=== PATIENT | female | born 1950 | race American Indian/Alaskan Native ===

== ENCOUNTER → 2018-09-27 | Outpatient (CLI) | payer MEDICARE, OTHER ==
--- NOTE | 2018-09-28 08:49 | MM ---
Reason for exam: additional evaluation requested from prior study. Last mammogram was performed 3 years and 9 months ago. History: Patient is postmenopausal and has history of breast cancer at age 58. Family history of breast cancer in maternal aunt. Saline implant in the right breast, September 2013. Reduction of the left breast, September 2013. Mastectomy of the right breast, 2009. Chemotherapy, 2009. Taking other hormone for 10 years. Physical Findings: Nurse did not find any significant physical abnormalities on exam. MG 3D Diag Mammo W/Cad LT CC and MLO view(s) were taken of the left breast. Prior study comparison: December 19, 2014, left breast MG diagnostic mammo LT w CAD. The breast tissue is heterogeneously dense. This may lower the sensitivity of mammography. Finding #1: There is a 15 mm circumscribed lobulated mass in the axilla position of the left breast. Finding #2: There are typically benign round calcifications in the left breast. New finding since December 19, 2014. These results were verbally communicated with the patient on 09/28/18. ASSESSMENT: Incomplete: need additional imaging evaluation, BI-RAD 0 RECOMMENDATION: Ultrasound of the left breast.
== END | disposition home or self-care (01) ==
LOC: RADMAMWWP 15:29
PROVIDERS: ATTEND Family Medicine
DX: Z08 Encounter for follow-up examination after completed treatment for malignant neoplasm (principal); Z85.3 Personal history of malignant neoplasm of breast
CPT/HCPCS: 77065; G0279; 77061

== ENCOUNTER → 2018-10-06 | Outpatient (CLI) | payer MEDICARE, OTHER ==
--- NOTE | 2018-10-06 15:12 | USB ---
Reason for exam: additional evaluation requested from abnormal screening. History: Patient is postmenopausal and has history of breast cancer at age 58. Family history of breast cancer in maternal aunt. Saline implant in the right breast, September 2013. Reduction of the left breast, September 2013. Mastectomy of the right breast, 2009. Chemotherapy, 2009. Taking other hormone for 10 years. US Breast Workup Limited LT Left limited breast ultrasound including focal area of concern, retroareolar and axilla demonstrates a 2.8 x 1.6 x 0.9cm oval lesion at the axilla. These results were verbally communicated with the patient and result sheet given to the patient on 10/06/18. ASSESSMENT: Benign, BI-RAD 2 RECOMMENDATION: Routine screening mammogram of both breasts in 1 year.
--- NOTE | 2018-10-11 09:02 | USB ---
Reason for exam: additional evaluation requested from abnormal screening. History: Patient is postmenopausal and has history of breast cancer at age 58. Family history of breast cancer in maternal aunt. Saline implant in the right breast, September 2013. Reduction of the left breast, September 2013. Mastectomy of the right breast, 2009. Chemotherapy, 2009. Taking other hormone for 10 years. US Breast Limited LT Left limited breast ultrasound including focal area of concern, retroareolar and axilla demonstrates a 2.8 x 1.6 x 0.9cm oval lesion at the axilla. These results were verbally communicated with the patient and result sheet given to the patient on 10/06/18. ASSESSMENT: Benign, BI-RAD 2 RECOMMENDATION: Routine screening mammogram of both breasts in 1 year.
== END | disposition home or self-care (01) ==
LOC: RADUSWWP 14:21
PROVIDERS: ATTEND Family Medicine
DX: R92.8 Other abnormal and inconclusive findings on diagnostic imaging of breast (principal)

== ENCOUNTER → 2018-10-19 | Outpatient (CLI) | payer MEDICARE, OTHER ==
[2018-10-19 11:20] VITALS: BP 154/70; PULSE 74; RESP 16; TEMP 98.2; BMI 23.1
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
== END ==
LOC: WWCWWP 10:58
PROVIDERS: ATTEND Surgery
DX: Z53.9 Procedure and treatment not carried out, unspecified reason (principal)

== ENCOUNTER → 2018-10-31 | Outpatient (CLI) | payer MEDICARE, OTHER ==
--- NOTE | 2018-11-02 08:22 | BMR ---
EXAMINATION TYPE: MR breast BILAT wo/w con DATE OF EXAM: 10/31/2018 COMPARISON: NONE HISTORY: Rule out Ruptured rt breast implant per order. Family history of breast cancer in aunt [place] at age 60. History of right breast mastectomy 2010 for cancer diagnosed 2008 with 2 reconstructi ons in 2012 and 2017 per patient. Saline implants placed 2018. CONTRAST: Multiplanar, multisequence images of the breasts were acquired utilizing 6.5 mL intravenous Gadavist gadolinium contrast. TECHNIQUE: A series of fat and water weighted images in the long and short axis views of both breasts are obtained in conjunction with dynamic contrast MRI with subtraction technique. Three-dimensional and additional postprocessing imaging is created on independent workstation and reviewed during offi cial interpretation of this study. REFERENCE: Left breast Three-D mammogram September 27, 2018 BI-RADS 0 and older mammograms. Left breast limi gladys ultrasound October 06, 2018 BI-RADS 2. FINDINGS: Right breast has elongated transverse dimension and diminished AP dimension versus opposite left breast. There is silicone type central implant with surrounding fluid likely reflecting saline between capsules. There is slight lobulation or infolding along the periphery. No suspicious infoldin g or linguini sign to suggest intracapsular rupture. No extracapsular silicone is identified to sugge st external rupture which correlates with presence of trapped saline between the capsules. Subpectora l location of implant noted. Left breast shows heterogeneously dense tissue with moderate to marked background glanular enhancemen t. Corresponding to mammogram and ultrasound there are prominent but benign-appearing left axillary l ymph nodes. There are few tiny thin-walled cysts scattered throughout central glandular tissue. No le spicious enhancing masses or pathologic enhancement is identified. No suspicious intramammary adenopa thy is seen. Chest wall is intact. IMPRESSION: No MRI evidence for invasive malignancy in the left breast. No MRI evidence for right remington ast implant rupture. BI-RADS 2 benign findings right breast. BI-RADS 2 benign findings left breast. Recommendation: Patient due for annual left breast mammogram September 2019.
== END | disposition home or self-care (01) ==
LOC: RADMRIMAIN 14:11
PROVIDERS: ATTEND Surgery
DX: R68.89 Other general symptoms and signs (principal); Z98.82 Breast implant status
CPT/HCPCS: C8937; C8908; A9585; 77049

== ENCOUNTER 2021-10-29 14:36 | Inpatient (IN) | payer MEDICARE, OTHER ==
[2021-10-29 16:04] LABS: Basophils # (A) 0.1 k/uL (0-0.2); Basophils % (A) 0 %; Eosinophils # (A) 0.3 k/uL (0-0.7); Eosinophils % (A) 2 %; HCT 39.5 % (34.0-46.0); HGB 12.7 gm/dL (11.4-16.0); Lymphocytes # (A) 2.5 k/uL (1.0-4.8); Lymphocytes % (A) 19 %; MCH 31.1 pg (25.0-35.0); MCHC 32.3 g/dL (31.0-37.0); MCV 96.4 fL (80.0-100.0); Mean Platelet Volume 7.9; Monocytes # (A) 0.6 k/uL (0-1.0); Monocytes % (A) 4 %; Neutrophils # (A) 9.5 k/uL (1.3-7.7); Neutrophils % (A) 72 %; Platelet Count 414 k/uL (150-450); RBC 4.09 m/uL (3.80-5.40); RDW 14.2 % (11.5-15.5); WBC 13.2 k/uL (3.8-10.6)
[2021-10-29 16:17] LABS: ALT 13 U/L (4-34); AST 26 U/L (14-36); African American GFR (CKD) >90 (>60 ml/min/1.73 sqM); Albumin 4.3 g/dL (3.5-5.0); Alkaline Phosphatase 87 U/L (38-126); Anion Gap 7 mmol/L; Blood Urea Nitrogen 8 mg/dL (7-17); Calcium 9.6 mg/dL (8.4-10.2); Carbon Dioxide 27 mmol/L (22-30); Chloride 105 mmol/L (98-107); Glucose 76 mg/dL (74-99); Non-African American GFR(CKD) >90 (>60 ml/min/1.73 sqM); Potassium 4.1 mmol/L (3.5-5.1); Sodium 139 mmol/L (137-145); Total Bilirubin 0.4 mg/dL (0.2-1.3); Total Protein 7.3 g/dL (6.3-8.2)
--- NOTE | 2021-10-29 16:52 | XR ---
EXAMINATION TYPE: XR chest 2V DATE OF EXAM: 10/29/2021 COMPARISON: X-ray dated 04/05/2012 HISTORY: Hemoptysis TECHNIQUE: Frontal and lateral views of the chest are obtained. FINDINGS: Almost complete opacification of the left hemithorax with loss of volume and significant cardiomedias tinal shift to the left side. Possible associated left pleural effusion. This could be due to complet e collapse of the left lung or interval left pneumonectomy, please correlate clinically. Further CT a ssessment can be considered if clinically required. Compensatory hyperinflation of the right lung. No right-sided pleural effusion or definite pneumothor ax. Cardiac size cannot be properly assessed. Dense aortic atherosclerotic calcifications. Diffuse os teopenia. Degenerative changes of the thoracic spine. IMPRESSION: As above.
[2021-10-29] MEDS ORDERED: RX INFO: IV CONTRAST WAS GIVEN 1 EACH MISC MISCELLANE PRN (16:59)
[2021-10-29 17:41] LABS: INR 0.9 (<1.2)
[2021-10-29 17:44] LABS: Amorphous Sediment,Urine Rare /hpf; Appearance,Urine Turbid (Clear); Bacteria,Urine Occasional /hpf; Bilirubin,Urine Negative (Negative); Blood,Urine Negative (Negative); Calcium Oxalate Crystals,Urine Moderate /hpf; Color,Urine Yellow; Glucose,Urine (UA) Negative (Negative); Ketones,Urine Negative (Negative); Leukocyte Esterase,Urine Large (Negative); Mucus,Urine Many /hpf; Nitrite,Urine Negative (Negative); PH, Urine 5.5 (5.0-8.0); Protein,Urine 1+ (Negative); RBC,Urine 7 /hpf (0-5); Specific Gravity,Urine 1.028 (1.001-1.035); Squamous Epithelial Cell,Urine 53 /hpf (0-4); Urobilinogen,Urine <2.0 mg/dL (<2.0); WBC,Urine 15 /hpf (0-5)
--- NOTE | 2021-10-29 18:14 | ED ---
ENT HPI - General Chief complaint: GI Bleed Stated complaint: Coughing Up blood Time Seen by Provider: 10/29/21 16:23 Source: patient, family, RN notes reviewed Mode of arrival: ambulatory Limitations: no limitations - History of Present Illness Initial comments: This is a 70-year-old female who presents to the emergency department for hemoptysis. Patient states that this has been present for approximately one week and occurs about twice each day. When it does occur, she states that she coughs up a large amount of bright red blood. She has very minor shortness of breath and denies any chest pain. She did have an episode of black tarry stools over a week ago that has since resolved. Denies any abdominal pain, nausea, or vomiting. She does have a history of breast cancer that was last treated 4-[address] Jensen manage this. She has never been diagnosed with any pulmonary issues, however she is a daily smoker. She does report associated upper back pain with the hemoptysis. She has never had symptoms like this in the past. Denies any fevers, chills, sore throat, chest pain, palpitations, abdominal pain, nausea, vomiting, diarrhea, back pain, or headaches. MD complaint: other (hemoptysis) Onset/Timin -: week(s) - Related Data Home Medications Medication Instructions Recorded Confirmed Letrozole [Femara] 2.5 mg PO DAILY 03/31/16 10/29/21 Multivitamins, Thera [Multivitamin] 1 tab PO DAILY 03/31/16 10/29/21 [place]-3 Fatty Acids/Fish Oil [Fish 2 cap PO DAILY 03/31/16 10/29/21 Oil 1,000 mg Softgel] Ascorbic Acid [Vitamin C] 2,000 mg PO DAILY 10/29/21 10/29/21 Aspirin EC [Ecotrin Low Dose] 81 mg PO DAILY 10/29/21 10/29/21 Cholecalciferol [Vitamin D3 (25 50 mcg PO DAILY 10/29/21 10/29/21 Mcg = 1000 Iu)] PARoxetine [Paxil] 20 mg PO HS PRN 10/29/21 10/29/21 Vitamin B Complex 1 cap PO DAILY 10/29/21 10/29/21 amLODIPine [Norvasc] 10 mg PO DAILY 10/29/21 10/29/21 Allergies Allergy/AdvReac Type Severity Reaction Status Date / Time nicotine [From Nicotrol] Allergy Unknown Verified 10/29/21 17:18 prednisone Allergy Unknown Verified 10/29/21 17:18 Sulfa (Sulfonamide Allergy Rash/Hives Verified 10/29/21 17:18 Antibiotics) meperidine [From Demerol] AdvReac Nausea & Verified 10/29/21 17:18 Vomiting morphine AdvReac Nausea & Verified 10/29/21 17:18 Vomiting Review of Systems ROS Statement: Those systems with pertinent positive or pertinent negative responses have been documented in the HPI. ROS Other: All systems not noted in ROS Statement are negative. Past Medical History Past Medical History: Cancer, Hypertension, Osteoarthritis (OA) Additional Past Medical History / Comment(s): HX BREAST CANCER History of Any Multi-Drug Resistant Organisms: None Reported Past Surgical History: Breast Surgery, Joint Replacement Additional Past Surgical History / Comment(s): 04/05/16 total R knee arthroplasty. Other surgical hx: RT BREAST MASTECTOMY/RECONSTRUCTION LT EYE SOCKET AND LT EAR Past Anesthesia/Blood Transfusion Reactions: No Reported Reaction Past Psychological History: No Psychological Hx Reported Smoking Status: Current every day smoker Past Alcohol Use History: Occasional Past Drug Use History: Marijuana - Past Family History Mother Family Medical History: Cancer Additional Family Medical History / Comment(s): Mother of lung cancer at the age of 83 yrs. She was a heavy smoker Father Family Medical History: No Reported History General Exam Limitations: no limitations General appearance: alert, in no apparent distress Head exam: Present: atraumatic, normocephalic, normal inspection Neck exam: Present: normal inspection. Absent: tenderness, meningismus, lymphadenopathy Respiratory exam: Present: other (Decreased breath sounds on the left). Absent: respiratory distress, wheezes, rales, rhonchi, stridor, chest wall tenderness Cardiovascular Exam: Present: regular rate, normal rhythm, normal heart sounds. Absent: systolic murmur, diastolic murmur, rubs, gallop, clicks Neurological exam: Present: alert, oriented X3, CN II-XII intact Psychiatric exam: Present: normal affect, normal mood Skin exam: Present: warm, dry, intact, normal color. Absent: rash Course Vital Signs 10/29/21 10/29/21 15:16 18:03 Temperature 98.6 F Pulse Rate 88 78 Respiratory 20 18 Rate Blood Pressure 148/68 130/56 O2 Sat by Pulse 94 L 95 Oximetry Medical Decision Making - Medical Decision Making This is a 70-year-old female who presents to the emergency department for hem optysis. Lab work reveals an elevated white blood cell count and elevated d- dimer. Chest x-ray noted a left opaque hemithorax and significant cardiomediastinal shift to the left. Computed tomography scan of the chest was obtained, revealing near-complete airlessness of the left lung and a small left effusion. No definitive pneumothorax identified. I spoke with Dr. Young, pulmonology. He will review the patient's computed tomography scan. At this time, we will plan to keep her NPO at midnight for possible bronchoscopy in the morning. This case was discussed in detail with the attending ED physician. Presentation, findings, and treatment plan discussed in detail as well. - Lab Data Result diagrams: 10/29/21 15:53 10/29/21 15:53 Lab Results 10/29/21 10/29/21 10/29/21 Range/Units 15:52 15:53 15:53 WBC 13.2 H (3.8-10.6) k/uL RBC 4.09 (3.80-5.40) m/uL Hgb 12.7 (11.4-16.0) gm/dL Hct 39.5 (34.0-46.0) % MCV 96.4 (80.0-100.0) fL MCH 31.1 (25.0-35.0) pg MCHC 32.3 (31.0-37.0) g/dL RDW 14.2 (11.5-15.5) % Plt Count 414 (150-450) k/uL MPV 7.9 Neutrophils % 72 % Lymphocytes % 19 % Monocytes % 4 % Eosinophils % 2 % Basophils % 0 % Neutrophils # 9.5 H (1.3-7.7) k/uL Lymphocytes # 2.5 (1.0-4.8) k/uL Monocytes # 0.6 (0-1.0) k/uL Eosinophils # 0.3 (0-0.7) k/uL Basophils # 0.1 (0-0.2) k/uL PT (9.0-12.0) sec INR (<1.2) D-Dimer (<0.60) mg/L FEU Sodium 139 (137-145) mmol/L Potassium 4.1 (3.5-5.1) mmol/L Chloride 105 (98-107) mmol/L Carbon Dioxide 27 (22-30) mmol/L Anion Gap 7 mmol/L BUN 8 (7-17) mg/dL Creatinine 0.53 (0.52-1.04) mg/dL Est GFR (CKD-EPI)AfAm >90 (>60 ml/min/1.73 sqM) Est GFR (CKD-EPI)NonAf >90 (>60 ml/min/1.73 sqM) Glucose 76 (74-99) mg/dL Calcium 9.6 (8.4-10.2) mg/dL Total Bilirubin 0.4 (0.2-1.3) mg/dL AST 26 (14-36) U/L ALT 13 (4-34) U/L Alkaline Phosphatase 87 (38-126) U/L Total Protein 7.3 (6.3-8.2) g/dL Albumin 4.3 (3.5-5.0) g/dL Urine Color Urine Appearance (Clear) Urine pH (5.0-8.0) Ur Specific [place] (1.001-1.035) Urine Protein (Negative) Urine Glucose (UA) (Negative) Urine Ketones (Negative) Urine Blood (Negative) Urine Nitrite (Negative) Urine Bilirubin (Negative) Urine Urobilinogen (<2.0) mg/dL Ur Leukocyte Esterase (Negative) Urine RBC (0-5) /hpf Urine WBC (0-5) /hpf Ur Squamous Epith Cells (0-4) /hpf Calcium Oxalate Crystal (None) /hpf Amorphous Sediment (None) /hpf Urine Bacteria (None) /hpf Urine Mucus (None) /hpf Coronavirus (PCR) (Not Detectd) Influenza Type A RNA (Not Detectd) Influenza Type B (PCR) (Not Detectd) Blood Type A Positive Blood Type Confirm Blood Type Recheck No Previous Record Bld Type Recheck Status CABO Indicated Antibody Screen NEGATIVE Spec Expiration Date 11/01/2021235110/29/21 10/29/21 10/29/21 Range/Units 16:30 16:30 16:30 WBC (3.8-10.6) k/uL RBC (3.80-5.40) m/uL Hgb (11.4-16.0) gm/dL Hct (34.0-46.0) % MCV (80.0-100.0) fL MCH (25.0-35.0) pg MCHC (31.0-37.0) g/dL RDW (11.5-15.5) % Plt Count (150-450) k/uL MPV Neutrophils % % Lymphocytes % % Monocytes % % Eosinophils % % Basophils % % Neutrophils # (1.3-7.7) k/uL Lymphocytes # (1.0-4.8) k/uL Monocytes # (0-1.0) k/uL Eosinophils # (0-0.7) k/uL Basophils # (0-0.2) k/uL PT 10.0 (9.0-12.0) sec INR 0.9 (<1.2) D-Dimer 1.71 H (<0.60) mg/L FEU Sodium (137-145) mmol/L Potassium (3.5-5.1) mmol/L Chloride (98-107) mmol/L Carbon Dioxide (22-30) mmol/L Anion Gap mmol/L BUN (7-17) mg/dL Creatinine (0.52-1.04) mg/dL Est GFR (CKD-EPI)AfAm (>60 ml/min/1.73 sqM) Est GFR (CKD-EPI)NonAf (>60 ml/min/1.73 sqM) Glucose (74-99) mg/dL Calcium (8.4-10.2) mg/dL Total Bilirubin (0.2-1.3) mg/dL AST (14-36) U/L ALT (4-34) U/L Alkaline Phosphatase (38-126) U/L Total Protein (6.3-8.2) g/dL Albumin (3.5-5.0) g/dL Urine Color Yellow Urine Appearance Turbid H (Clear) Urine pH 5.5 (5.0-8.0) Ur Specific [place] 1.028 (1.001-1.035) Urine Protein 1+ H (Negative) Urine Glucose (UA) Negative (Negative) Urine Ketones Negative (Negative) Urine Blood Negative (Negative) Urine Nitrite Negative (Negative) Urine Bilirubin Negative (Negative) Urine Urobilinogen <2.0 (<2.0) mg/dL Ur Leukocyte Esterase Large H (Negative) Urine RBC 7 H (0-5) /hpf Urine WBC 15 H (0-5) /hpf Ur Squamous Epith Cells 53 H (0-4) /hpf Calcium Oxalate Crystal Moderate H (None) /hpf Amorphous Sediment Rare H (None) /hpf Urine Bacteria Occasional H (None) /hpf Urine Mucus Many H (None) /hpf Coronavirus (PCR) (Not Detectd) Influenza Type A RNA (Not Detectd) Influenza Type B (PCR) (Not Detectd) Blood Type Blood Type Confirm A Positive Blood Type Recheck Bld Type Recheck Status Antibody Screen Spec Expiration Date 10/29/21 10/29/21 Range/Units 16:30 16:30 WBC (3.8-10.6) k/uL RBC (3.80-5.40) m/uL Hgb (11.4-16.0) gm/dL Hct (34.0-46.0) % MCV (80.0-100.0) fL MCH (25.0-35.0) pg MCHC (31.0-37.0) g/dL RDW (11.5-15.5) % Plt Count (150-450) k/uL MPV Neutrophils % % Lymphocytes % % Monocytes % % Eosinophils % % Basophils % % Neutrophils # (1.3-7.7) k/uL Lymphocytes # (1.0-4.8) k/uL Monocytes # (0-1.0) k/uL Eosinophils # (0-0.7) k/uL Basophils # (0-0.2) k/uL PT (9.0-12.0) sec INR (<1.2) D-Dimer (<0.60) mg/L FEU Sodium (137-145) mmol/L Potassium (3.5-5.1) mmol/L Chloride (98-107) mmol/L Carbon Dioxide (22-30) mmol/L Anion Gap mmol/L BUN (7-17) mg/dL Creatinine (0.52-1.04) mg/dL Est GFR (CKD-EPI)AfAm (>60 ml/min/1.73 sqM) Est GFR (CKD-EPI)NonAf (>60 ml/min/1.73 sqM) Glucose (74-99) mg/dL Calcium (8.4-10.2) mg/dL Total Bilirubin (0.2-1.3) mg/dL AST (14-36) U/L ALT (4-34) U/L Alkaline Phosphatase (38-126) U/L Total Protein (6.3-8.2) g/dL Albumin (3.5-5.0) g/dL Urine Color Urine Appearance (Clear) Urine pH (5.0-8.0) Ur Specific [place] (1.001-1.035) Urine Protein (Negative) Urine Glucose (UA) (Negative) Urine Ketones (Negative) Urine Blood (Negative) Urine Nitrite (Negative) Urine Bilirubin (Negative) Urine Urobilinogen (<2.0) mg/dL Ur Leukocyte Esterase (Negative) Urine RBC (0-5) /hpf Urine WBC (0-5) /hpf Ur Squamous Epith Cells (0-4) /hpf Calcium Oxalate Crystal (None) /hpf Amorphous Sediment (None) /hpf Urine Bacteria (None) /hpf Urine Mucus (None) /hpf Coronavirus (PCR) Not Detected (Not Detectd) Influenza Type A RNA Not Detected (Not Detectd) Influenza Type B (PCR) Not Detected (Not Detectd) Blood Type Blood Type Confirm Blood Type Recheck Bld Type Recheck Status Antibody Screen Spec Expiration Date - EKG Data EKG Comments: Normal sinus rhythm. Ventricular rate 77 bpm, CT interval 165 ms, QRS duration 95 ms, QTC 415 milliseconds. - Radiology Data Radiology results: report reviewed, image reviewed Disposition Clinical Impression: Hemoptysis, Hx of breast cancer, Opacity of lung on imaging study, Mediastinal shift Disposition: ADMITTED IP TO THIS HOSP Referrals: Denver Singh MD [Primary Care Provider] - 1-2 days
--- NOTE | 2021-10-29 18:40 | CT ---
EXAMINATION TYPE: CT chest w con DATE OF EXAM: 10/29/2021 COMPARISON: Chest x-ray 10/29/2021 HISTORY: SOB CT DLP: 311.7 mGycm. Automated Exposure Control for Dose Reduction was Utilized. TECHNIQUE: CT scan of the thorax is performed following with IV Contrast, patient injected with 100 mL of Isovue 300. FINDINGS: SOFT TISSUES: Right breast implant noted. AIRWAYS: Unremarkable. LUNGS AND PLEURAL SPACES: On the left there is near complete airlessness of the left lung parenchyma with exception of a small area of left lower lobe which is partially inflated. Small left pleural eff usion noted. On the right, the lung is hyperinflated and is clear and well-expanded. The right pleural spaces nega tive. MEDIASTINUM: The there is no cardiomegaly. No pericardial effusion. Atherosclerotic changes are noted within the aorta. Pulmonary arterial anatomy unremarkable as seen. No adenopathy. OTHER: No additional significant abnormality is seen. No adenopathy. IMPRESSION: Near complete airlessness of the left lung parenchyma with small left effusion.
[2021-10-29] MEDS ORDERED: NALOXONE 0.4 MG/ML 1 ML VIAL IV PRN (20:46)
[2021-10-29] MEDS ORDERED: ONDANSETRON 4 MG/2 ML VIAL IVP PRN (20:46)
[2021-10-29] MEDS ORDERED: ACETAMINOPHEN TAB 325 MG TAB PO PRN (20:46)
[2021-10-29] MEDS: SODIUM CHLORIDE 0.9% 1,000 ML IV SCH (23:43)
[2021-10-30] MEDS ORDERED: NON FORMULARY DRUG (Vitamin B Complex [Vitamin B Complex] 1 EACH Capsule) PO SCH (09:00)
[2021-10-30] MEDS ORDERED: NON FORMULARY DRUG (Omega-3 Fatty Acids/Fish Oil [Fish Oil 1,000 Mg Softgel] 1 EACH Capsul PO SCH (09:00)
[2021-10-30] MEDS: amLODIPine 10 MG TAB PO SCH (11:22)
--- NOTE | 2021-10-30 11:47 | P.CNPUL ---
History of Present Illness Consult date: 10/30/21 Reason for consult: dyspnea, abnormal CXR/CT Chief complaint: Hemoptysis History of present illness: 70-year-old female patient, came into the emergency room because of episodes of hemoptysis that started approximately week ago and she was having 2 episodes a day. She was coughing out large amounts of bright red blood and she was also having some increased shortness of breath. For that reason she came into the hospital. The chest x-ray was done that showed complete opacification of the left lung and following that the patient was given a computed tomography scan of the chest that showed atelectasis of the left lung and a small left-sided pleural effusion. There is also subcarinal lymphadenopathy. Right lung was essentially clear. Complete atelectasis of the left lung or near complete atelectasis. The right lung was clear. There is subcarinal lymphadenopathy. There is some mass in the distal left mainstem bronchus and based on that the patient will need further investigation. The patient is a chronic smoker. The patient has previous history of breast cancer and she has undergone previous right mastectomy and she is currently on Femara Review of Systems Eyes: denies as per HPI, denies blurred vision, denies bulging eye, denies decreased vision, denies diplopia, denies discharge, denies dry eye, denies irritation, denies itching, denies pain, denies photophobia, denies loss of peripheral vision, denies loss of vision, denies tunnel vision/blind spots Ears: deny: decreased hearing, ear discharge, earache, tinnitus Ears, nose, mouth and throat: Reports as per HPI Breasts: absent: as per HPI, change in shape, gynecomastia, masses, nipple discharge, pain, skin changes, swelling Cardiovascular: Reports decreased exercise tolerance, Reports dyspnea on exertion Respiratory: Reports cough, Reports dyspnea, Reports excessive sputum Genitourinary: Reports as per HPI Menstruation: Reports as per HPI Musculoskeletal: Reports as per HPI Musculoskeletal: absent: ankle pain, ankle stiffness, ankle swelling Integumentary: Reports as per HPI Psychiatric: Reports as per HPI Endocrine: Reports as per HPI Hematologic/Lymphatic: Reports as per HPI Allergic/Immunologic: Reports as per HPI Past Medical History Past Medical History: Cancer, Hypertension, Osteoarthritis (OA) Additional Past Medical History / Comment(s): HX BREAST CANCER History of Any Multi-Drug Resistant Organisms: None Reported Past Surgical History: Breast Surgery, Joint Replacement Additional Past Surgical History / Comment(s): 04/05/16 total R knee arthroplasty. Other surgical hx: RT BREAST MASTECTOMY/RECONSTRUCTION LT EYE SOCKET AND LT EAR Past Anesthesia/Blood Transfusion Reactions: No Reported Reaction Past Psychological History: No Psychological Hx Reported Additional Psychological History / Comment(s): Pt resides with her spouse. She has a cane she uses prn. She drives. Smoking Status: Current every day smoker Past Alcohol Use History: Occasional Additional Past Alcohol Use History / Comment(s): HAS SMOKED 1/2 PPD SINCE AGE 17 Past Drug Use History: Marijuana - Past Family History Mother Family Medical History: Cancer Additional Family Medical History / Comment(s): Mother of lung cancer at the age of 83 yrs. She was a heavy smoker Father Family Medical History: No Reported History Brother(s) Additional Family Medical History / Comment(s): lung cancer Medications and Allergies Home Medications Medication Instructions Recorded Confirmed Type Letrozole [Femara] 2.5 mg PO DAILY 03/31/16 10/29/21 History Multivitamins, Thera [Multivitamin] 1 tab PO DAILY 03/31/16 10/29/21 History [place]-3 Fatty Acids/Fish Oil [Fish 2 cap PO DAILY 03/31/16 10/29/21 History Oil 1,000 mg Softgel] Ascorbic Acid [Vitamin C] 2,000 mg PO DAILY 10/29/21 10/29/21 History Aspirin EC [Ecotrin Low Dose] 81 mg PO DAILY 10/29/21 10/29/21 History Cholecalciferol [Vitamin D3 (25 50 mcg PO DAILY 10/29/21 10/29/21 History Mcg = 1000 Iu)] PARoxetine [Paxil] 20 mg PO HS PRN 10/29/21 10/29/21 History Vitamin B Complex 1 cap PO DAILY 10/29/21 10/29/21 History amLODIPine [Norvasc] 10 mg PO DAILY 10/29/21 10/29/21 History Allergies Allergy/AdvReac Type Severity Reaction Status Date / Time nicotine [From Nicotrol] Allergy Unknown Verified 10/29/21 17:18 prednisone Allergy Unknown Verified 10/29/21 17:18 Sulfa (Sulfonamide Allergy Rash/Hives Verified 06/09/22 17:18 Antibiotics) meperidine [From Demerol] AdvReac Nausea & Verified 10/29/21 17:18 Vomiting morphine AdvReac Nausea & Verified 10/29/21 17:18 Vomiting Physical Exam Vitals: Vital Signs Temp Pulse Pulse Resp BP BP Pulse Ox 10/30/21 11:08 78 16 139/80 92 L 10/30/21 08:00 98.1 F 66 16 163/69 97 10/30/21 06: 98.4 F 73 18 126/71 95 10/29/21 18:03 78 18 130/56 95 10/29/21 15:16 98.6 F 88 20 148/68 94 L Intake and Output 10/29/21 10/30/21 10/30/21 22:59 06:59 14:59 Other: # Voids 1 Weight 64.864 kg 66.5 kg Gen. appearance this patient is coming comfortable, breathing is nonlabored and the patient is currently on room air oxygen. Head exam was generally normal. There was no scleral icterus or corneal arcus. Mucous membranes were moist. Neck was supple and without jugular venous distension, thyromegaly, or carotid bruits. Carotids were easily palpable bilaterally. There was no adenopathy. Lungs sounds are diminished in the left compared to the right. Breath sounds in the right arm within normal limits. Cardiac exam revealed the PMI to be normally situated and sized. The rhythm was regular and no extrasystoles were noted during several minutes of auscultation. The first and second heart sounds were normal and physiologic splitting of the second heart sound was noted. There were no murmurs, rubs, clicks, or gallops. Abdominal exam revealed normal bowel sounds. The abdomen was soft, non-tender, and without masses, organomegaly, or appreciable enlargement of the abdominal aorta. Examination of the extremities revealed easily palpable radial, femoral and pedal pulses. There was no cyanosis, clubbing or edema. Examination of the skin revealed no evidence of significant rashes, suspicious a ppearing nevi or other concerning lesions. Results - Laboratory Findings CBC and BMP: 10/29/21 15:53 10/29/21 15:53 PT/INR, D-dimer PT 10.0 sec (9.0-12.0) 10/29/21 16:30 INR 0.9 (<1.2) 10/29/21 16:30 D-Dimer 1.71 mg/L FEU (<0.60) H 10/29/21 16:30 Abnormal lab findings: Abnormal Labs 10/29/21 10/29/21 10/29/21 15:53 16:30 16:30 WBC 13.2 H Neutrophils # 9.5 H D-Dimer 1.71 H Urine Appearance Turbid H Urine Protein 1+ H Ur Leukocyte Esterase Large H Urine RBC 7 H Urine WBC 15 H Ur Squamous Epith Cells 53 H Calcium Oxalate Crystal Moderate H Amorphous Sediment Rare H Urine Bacteria Occasional H Urine Mucus Many H - Diagnostic Findings Chest x-ray: image reviewed CT scan - chest: image reviewed Assessment and Plan Plan: Left lung atelectasis, rule out endobronchial tumor obstructing the distal left mainstem bronchus, the patient will need further investigation Hemoptysis under investigation Mild shortness of breath and the patient is currently on room air oxygen History of stage III breast cancer with a previous right mastectomy followed by chemotherapy and subsequent breast implant reconstruction and the patient is currently on Femara Smoker Depression/anxiety Hypertension Osteoarthritis PLAN We'll proceed with a flexible bronchoscopy, airway inspection, endobronchial biopsies if there is any significant abnormalities in the distal left mainstem bronchus, possible EBUS of the subcarinal lymph nodes. We'll continue to follow.. The plan was discussed with the patient. The procedure was explained. She was agreeable. Consent was obtained. The patient is currently nothing by mouth.
[2021-10-30] MEDS ORDERED: SUCCINYLCHOLINE CHLORIDE 100 MG/5 ML SYR IV ONE (15:35)
[2021-10-30] MEDS ORDERED: GLYCOPYRROLATE 0.2 MG/ML 2 ML VIAL ONE (15:35)
[2021-10-30] MEDS ORDERED: NEOSTIGMINE 1 MG/ML 10 ML VIAL ONE (15:35)
[2021-10-30] MEDS ORDERED: ROCURONIUM 10 MG/ML (5 ML VIAL) IV ONE (15:35)
[2021-10-30] MEDS ORDERED: PROPOFOL 10 MG/ML 20 ML VIAL IV ONE (15:35)
[2021-10-30] MEDS ORDERED: MIDAZOLAM 2 MG/2 ML VIAL ONE (15:35)
[2021-10-30] MEDS ORDERED: POTASSIUM CITRATE 5 MEQ TABLET.ER PO ONE (15:35)
[2021-10-30] MEDS ORDERED: LIDOCAINE 2% INJ 20 MG/ML (2 ML VIAL) ONE (15:35)
--- NOTE | 2021-10-30 15:54 | P.HPIM ---
History of Present Illness H&P Date: 10/30/21 This is a 70-year-old female with past medical history significant for breast cancer with mastectomy maintained on femara, hypertension, daily smoker. She presents with concerns for back pain with hemoptysis ongoing for the past week states is a large amount of red blood. Patient also reports episodes of black tarry stool over a week ago that has since resolved. She smokes 1/2 pack per day, and also admits to smoking marijuana joint daily. Chest x-ray on admission showing complete opacification of the left hemithorax with possible associated left pleural effusion possible complete collapse of left lung. There is left lung atelectasis. Follow-up chest CT showing near complete airlessness of the left lung parenchyma with small left pleural effusion. Patient is admitted with consultation to pulmonary and is scheduled to undergo bronchoscopy today, there is concern for possible mass and obstruction at the left mainstream bronchus. EKG showing sinus rhythm heart rate 77, QT interval 415, no ST or T-wave changes. Labs on admission showed white count 13.2, d-dimer 1.71, Kashi panels unrem arkable, urine is turbid with large leukocyte esterase, moderate oxalate crystals. COVID, Infleunza A/ B are negative. She is 97% room air, afebrile, heart rate 66, blood pressure 163 with 69. REVIEW OF SYSTEMS: CONSTITUTIONAL: No fever, no malaise, no fatigue. HEENT: No recent visual problems or hearing problems. Denied any sore throat. CARDIOVASCULAR: No chest pain, orthopnea, PND, no palpitations, no syncope. PULMONARY: Reports shortness of breath, cough and hemoptysis GASTROINTESTINAL: No diarrhea, no nausea, no vomiting, no abdominal pain. NEUROLOGICAL: No headaches, no weakness, no numbness. HEMATOLOGICAL: Denies any bleeding or petechiae. GENITOURINARY: Denies any burning micturition, frequency, or urgency. MUSCULOSKELETAL/RHEUMATOLOGICAL: Denies any joint pain, swelling, or any muscle pain. ENDOCRINE: Denies any polyuria or polydipsia. The rest of the 14-point review of systems is negative. PHYSICAL EXAMINATION: GENERAL: The patient is alert and oriented x3, not in any acute distress. Well developed, well nourished. HEENT: Pupils are round and equally reacting to light. EOMI. No scleral icterus. No conjunctival pallor. Normocephalic, atraumatic. No pharyngeal erythema. No thyromegaly. CARDIOVASCULAR: S1 and S2 present. No murmurs, rubs, or gallops. PULMONARY: Chest is clear to auscultation, no wheezing or crackles. Diminished aeration entire left posterior lung ABDOMEN: Soft, nontender, nondistended, normoactive bowel sounds. No palpable organomegaly. MUSCULOSKELETAL: No joint swelling or deformity. EXTREMITIES: No cyanosis, clubbing, or pedal edema. NEUROLOGICAL: Gross neurological examination did not reveal any focal deficits. SKIN: No rashes. Assessment and Plan Assessment Shortness of breath secondary to near complete atelectasis left lung suspected mass/obstruction at the level of left mainstream bronchus patient is scheduled t o under go bronchoscopy today Hemoptysis Leukocytosis secondary to above Elevated d-dimer no evidence for pulmonary embolism Asymptomatic bacteriurea, urine culture pending History of right breast cancer with chemotherapy and mastectomy and breast reconstruction, maintained on femara Hypertension Daily tobacco use, 1/2 pack per day THC use Osteoarthritis GI prophylaxis DVT prophylaxis Full Code Plan Patient is scheduled to under bronchoscopy with possible biopsies Can resume oral medications Oxygen support as needed Continue IV fluids Follow up AM labs The impression and plan of care has been dictated by Vee Elias Nurse Practitioner as directed. Dr. Mikey MD I have performed a history and physical examination and medical decision making of this patient, discussed the same with the dictator, and agree with the dictators assessment and plan as written, documented as a scribe. Based on total visit time, I have performed more than 50% of this visit. Past Medical History Past Medical History: Cancer, Hypertension, Osteoarthritis (OA) Additional Past Medical History / Comment(s): HX BREAST CANCER History of Any Multi-Drug Resistant Organisms: None Reported Past Surgical History: Breast Surgery, Joint Replacement Additional Past Surgical History / Comment(s): 04/05/16 total R knee arthroplasty. Other surgical hx: RT BREAST MASTECTOMY/RECONSTRUCTION LT EYE SOCKET AND LT EAR Past Anesthesia/Blood Transfusion Reactions: No Reported Reaction Past Psychological History: No Psychological Hx Reported Smoking Status: Current every day smoker Past Alcohol Use History: Occasional Past Drug Use History: Marijuana - Past Family History Mother Family Medical History: Cancer Additional Family Medical History / Comment(s): Mother of lung cancer at the age of 83 yrs. She was a heavy smoker Father Family Medical History: No Reported History Brother(s) Additional Family Medical History / Comment(s): lung cancer Medications and Allergies Home Medications Medication Instructions Recorded Confirmed Type Letrozole [Femara] 2.5 mg PO DAILY 03/31/16 10/29/21 History Multivitamins, Thera [Multivitamin] 1 tab PO DAILY 03/31/16 10/29/21 History [place]-3 Fatty Acids/Fish Oil [Fish 2 cap PO DAILY 03/31/16 10/29/21 History Oil 1,000 mg Softgel] Ascorbic Acid [Vitamin C] 2,000 mg PO DAILY 10/29/21 10/29/21 History Aspirin EC [Ecotrin Low Dose] 81 mg PO DAILY 10/29/21 10/29/21 History Cholecalciferol [Vitamin D3 (25 50 mcg PO DAILY 10/29/21 10/29/21 History Mcg = 1000 Iu)] PARoxetine [Paxil] 20 mg PO HS PRN 10/29/21 10/29/21 History Vitamin B Complex 1 cap PO DAILY 10/29/21 10/29/21 History amLODIPine [Norvasc] 10 mg PO DAILY 10/29/21 10/29/21 History Allergies Allergy/AdvReac Type Severity Reaction Status Date / Time methylprednisolone Allergy Anaphylaxis Verified 10/30/21 11:45 [From Solu-Medrol] nicotine [From Nicotrol] Allergy Unknown Verified 10/29/21 17:18 prednisone Allergy Unknown Verified 10/29/21 17:18 Sulfa (Sulfonamide Allergy Rash/Hives Verified 10/29/21 17:18 Antibiotics) meperidine [From Demerol] AdvReac Nausea & Verified 10/29/21 17:18 Vomiting morphine AdvReac Nausea & Verified 10/29/21 17:18 Vomiting Physical Exam Vitals: Vital Signs Temp Pulse Pulse Resp BP BP Pulse Ox 10/30/21 08:00 98.1 F 66 16 163/69 97 10/30/21 06:22 98.4 F 73 18 126/71 95 10/29/21 18:03 78 18 130/56 95 10/29/21 15:16 98.6 F 88 20 148/68 94 L Intake and Output 10/29/21 10/30/21 10/30/21 22:59 06:59 14:59 Other: # Voids 1 Weight 64.864 kg Results CBC & Chem 7: 10/29/21 15:53 10/29/21 15:53 Labs: Abnormal Lab Results - Last 24 Hours (Table) 10/29/21 10/29/21 10/29/21 Range/Units 15:53 16:30 16:30 WBC 13.2 H (3.8-10.6) k/uL Neutrophils # 9.5 H (1.3-7.7) k/uL D-Dimer 1.71 H (<0.60) mg/L FEU Urine Appearance Turbid H (Clear) Urine Protein 1+ H (Negative) Ur Leukocyte Esterase Large H (Negative) Urine RBC 7 H (0-5) /hpf Urine WBC 15 H (0-5) /hpf Ur Squamous Epith Cells 53 H (0-4) /hpf Calcium Oxalate Crystal Moderate H (None) /hpf Amorphous Sediment Rare H (None) /hpf Urine Bacteria Occasional H (None) /hpf Urine Mucus Many H (None) /hpf Microbiology - Last 24 Hours (Table) 10/29/21 16:30 Urine Culture - Preliminary Urine,Voided Assessment and Plan Time with Patient: Less than 30
--- NOTE | 2021-10-30 16:29 | P.PCN ---
Date of Procedure: 10/30/21 Operative Findings: 1 left lung collapse 2 mediastinal lymphadenopathy, preoperative endoscopic ultrasound for staging purposes Postoperative Diagnosis: 1 endobronchial tumor obstructing the distal left mainstem bronchus with secondary left lung collapse 2 mediastinal lymphadenopathy, subcarinal, station 7 Procedure(s) Performed: 1 flexible bronchoscopy, airway inspection, endobronchial biopsies of the left mainstem bronchus tumor, endobronchial brushing of left mainstem bronchus tumor, bronchioloalveolar lavage of the distal left mainstem bronchus 2 endoscopic ultrasound (EBUS) 3 transbronchial needle aspirate of station station 7 lymph nodes Surgeon: Rachel Young Production Crew Supervisor #1: abeba Bradley Estimated Blood Loss (ml): 0 Pathology: other Condition: stable Operative Findings: After obtaining the consent the patient was taken to the OR suite he was intubated and put on MV by anesthesia then the scope was advanced to the ET tube until the Trachea was seen and it was normal and then the rogelio appears normal then the scope advanced to the left main and the proximal left mainstem bronchus was patent. Nevertheless, at is the left mainstem bronchus, there was a large endobronchial mass obstructing the distal left mainstem bronchus causing complete obstruction of the airway. I was unable to identify the left upper lobe bronchus and the left lower lobe bronchus. I was unable to go past this mass. The surface of the mass was cauliflower in appearance, highly vascular and was bleeding with limited amount of trauma caused by the bronchoscope. At that point, the bronchoscope was retracted back to the rogelio and advanced to the Right main and RUL RB1 and RB2 and RB3 were seen one by one and no endobronchial lesions were seen the scope then retracted and advanced to the BI and RML RB4 and RB5 were seen and no endobronchial lesions were seen then it was retracted and advanced to the RLL RB6 to RB12 were seen one by one and no endobronchial lesions. The bronchoscope was then moved to the distal left mainstem bronchus and under direct visualization, and the bronchial biopsies of the left distal mainstem endobronchial mass was done. Multiple biopsies were obtained. Following that, endobronchial brushing of the distal left mainstem bronchus mass was done under direct visualization. Following that, ice cold water was infused, a total of 80 mL and testes was aspirated. A bronchial lavage of the left mainstem endobronchial mass was done. The flexible bronchoscope was subsequently removed. Then EBUS was used and the lymph nodes were examined. Direct measurement of the mediastinal lymph nodes revealed a 19 x 21 mm subcarinal station 7 lymph node was identified. Using EBUS guidance, a total of 4 passes FNA of station 7 lymph nodes was obtained. No major bleeding and the scope was removed and taken out in total the patient was send to the floor in stable condition
[2021-10-30] MEDS ORDERED: IV FLUID CONTINUATION 500 ML IV ONE (16:34)
[2021-10-30] MEDS ORDERED: SODIUM CHLORIDE 0.9% 1,000 ML IV ONE (17:16)
[2021-10-30] MEDS: ASCORBIC ACID 500 MG TAB PO SCH (17:31)
[2021-10-30] MEDS: CHOLECALCIFEROL 25 MCG (1000 IU) TABLET PO SCH (17:31)
[2021-10-30] MEDS: ASPIRIN 81 MG PO SCH (17:31)
[2021-10-30] MEDS: MULTIVITAMINS, THERA 1 EACH TAB PO SCH (17:31)
--- NOTE | 2021-10-30 17:32 | XR ---
EXAMINATION TYPE: XR chest 1V portable DATE OF EXAM: 10/30/2021 COMPARISON: 10/29/2021 HISTORY: Postbronchoscopy TECHNIQUE: Single view FINDINGS: Heart and mediastinum are shifted to the left side. There is complete opacification left he mithorax. The right lung is clear. There are chest leads. No heart failure. IMPRESSION: There is evidence of complete atelectasis left lung without change compared to yesterday. No pneumothorax.
[2021-10-30] MEDS: SODIUM CHLORIDE 0.9% 1,000 ML IV SCH (17:45)
[2021-10-30] MEDS: LETROZOLE 2.5 MG TAB PO SCH (17:46)
[2021-10-31] MEDS: SODIUM CHLORIDE 0.9% 1,000 ML IV SCH ×2 (01:09→15:07)
[2021-10-31] MEDS: ASCORBIC ACID 500 MG TAB PO SCH (07:54)
[2021-10-31] MEDS: MULTIVITAMINS, THERA 1 EACH TAB PO SCH (07:54)
[2021-10-31] MEDS: amLODIPine 10 MG TAB PO SCH (07:54)
[2021-10-31] MEDS: CHOLECALCIFEROL 25 MCG (1000 IU) TABLET PO SCH (07:54)
[2021-10-31] MEDS: ASPIRIN 81 MG PO SCH (07:54)
[2021-10-31] MEDS ORDERED: FAMOTIDINE 20 MG TAB PO SCH (09:00)
[2021-10-31 09:50] VITALS: RESP 18
[2021-10-31] MEDS: LETROZOLE 2.5 MG TAB PO SCH (10:04)
[2021-10-31 10:10] LABS: Basophils % (A) 0 %; Eosinophils # (A) 0.2 k/uL (0-0.7); Eosinophils % (A) 3 %; HCT 36.1 % (34.0-46.0); HGB 11.2 gm/dL (11.4-16.0); Hypochromasia Slight; Lymphocytes # (A) 2.2 k/uL (1.0-4.8); Lymphocytes % (A) 24 %; MCH 30.8 pg (25.0-35.0); MCV 99.5 fL (80.0-100.0); Mean Platelet Volume 7.9; Monocytes # (A) 0.4 k/uL (0-1.0); Monocytes % (A) 5 %; Neutrophils % (A) 66 %; Platelet Count 409 k/uL (150-450); RBC 3.63 m/uL (3.80-5.40); RDW 13.9 % (11.5-15.5); WBC 9.1 k/uL (3.8-10.6)
[2021-10-31 10:17] LABS: African American GFR (CKD) >90 (>60 ml/min/1.73 sqM); Anion Gap 4 mmol/L; Blood Urea Nitrogen 7 mg/dL (7-17); Calcium 8.6 mg/dL (8.4-10.2); Carbon Dioxide 27 mmol/L (22-30); Chloride 110 mmol/L (98-107); Glucose 167 mg/dL (74-99); Non-African American GFR(CKD) >90 (>60 ml/min/1.73 sqM); Potassium 4.1 mmol/L (3.5-5.1); Sodium 141 mmol/L (137-145)
--- NOTE | 2021-10-31 12:27 | P.PN ---
Subjective Progress Note Date: 10/31/21 70-year-old female patient, came into the emergency room because of episodes of hemoptysis that started approximately week ago and she was having 2 episodes a day. She was coughing out large amounts of bright red blood and she was also having some increased shortness of breath. For that reason she came into the hospital. The chest x-ray was done that showed complete opacification of the left lung and following that the patient was given a computed tomography scan of the chest that showed atelectasis of the left lung and a small left-sided pleural effusion. There is also subcarinal lymphadenopathy. Right lung was essentially clear. Complete atelectasis of the left lung or near complete atele ctasis. The right lung was clear. There is subcarinal lymphadenopathy. There is some mass in the distal left mainstem bronchus and based on that the patient will need further investigation. The patient is a chronic smoker. The patient has previous history of breast cancer and she has undergone previous right mastectomy and she is currently on Femara 10/31/2021, the patient is doing well. The patient is clinically stable. Patient is post bronchoscopy, endobronchial biopsies and EBUS of the subcarinal station 7 lymph node. No active hemoptysis at this point in time. Repeat chest x-ray showed complete collapse of the left lung due to the endobronchial tumor obstructing the left main stem bronchus. Right lung is well expanded. No significant shortness of breath and altered mentation. Objective - Vital Signs Vital signs: Vital Signs Temp 98.1 F 10/31/21 08:00 Pulse 70 10/31/21 08:00 Resp 18 10/31/21 08:00 BP 141/60 10/31/21 08:00 Pulse Ox 92 L 10/31/21 08:00 FiO2 Intake & Output 10/30/21 10/31/21 10/31/21 18:59 06:59 18:59 Intake Total 570 Balance 570 Weight 66.5 kg Intake: IV 450 Oral 120 Other: Voiding Method Toilet # Voids 1 3 - Exam Gen. appearance this patient is coming comfortable, breathing is nonlabored and the patient is currently on room air oxygen. Head exam was generally normal. There was no scleral icterus or corneal arcus. Mucous membranes were moist. Neck was supple and without jugular venous distension, thyromegaly, or carotid bruits. Carotids were easily palpable bilaterally. There was no adenopathy. Lungs sounds are diminished in the left compared to the right. Breath sounds in the right arm within normal limits. Cardiac exam revealed the PMI to be normally situated and sized. The rhythm was regular and no extrasystoles were noted during several minutes of auscultation. The first and second heart sounds were normal and physiologic splitting of the second heart sound was noted. There were no murmurs, rubs, clicks, or gallops. Abdominal exam revealed normal bowel sounds. The abdomen was soft, non-tender, and without masses, organomegaly, or appreciable enlargement of the abdominal aorta. Examination of the extremities revealed easily palpable radial, femoral and pedal pulses. There was no cyanosis, clubbing or edema. Examination of the skin revealed no evidence of significant rashes, suspicious appearing nevi or other concerning lesions. - Labs CBC & Chem 7: 10/31/21 09:53 10/31/21 09:53 Labs: Abnormal Lab Results - Last 24 Hours (Table) 10/31/21 10/31/21 Range/Units 09:53 09:53 RBC 3.63 L (3.80-5.40) m/uL Hgb 11.2 L (11.4-16.0) gm/dL Chloride 110 H (98-107) mmol/L Glucose 167 H (74-99) mg/dL Microbiology - Last 24 Hours (Table) 10/30/21 16:30 Gram Stain - Preliminary Bronchial Washings - Left Bronchial Washings Culture - Preliminary 10/30/21 16:30 Acid Fast Bacilli Culture - Preliminary Bronchial Washings - Left 10/30/21 16:30 Fungal Culture - Preliminary Bronchial Washings - Left 10/29/21 16:30 Urine Culture - Final Urine,Voided Assessment and Plan Plan: Left lung atelectasis, rule out endobronchial tumor obstructing the distal left mainstem bronchus, and the patient is post bronchoscopy, biopsy and EBUS to be any of the subcarinal lymph nodes. Hemoptysis under investigation Mild shortness of breath and the patient is currently on room air oxygen History of stage III breast cancer with a previous right mastectomy followed by chemotherapy and subsequent breast implant reconstruction and the patient is currently on Femara Smoker Depression/anxiety Hypertension Osteoarthritis PLAN Awaiting final path results Clinically stable Anticipate mild episodic hemoptysis Can be discharged home to be followed up on outpatient basis We will also activate the oncologic services.
[2021-10-31 15:16] VITALS: BP 136/74; PULSE 80; TEMP 98.4
--- NOTE | 2021-11-01 18:05 | P.DS ---
Providers Date of admission: 10/29/21 23:09 Attending physician: Vicki Balderas MD Consults: 10/29/21 20:46 Consult Physician Urgent Consulting Provider: Rachel Young Consult Reason/Comments: Opaque hemithorax, hemoptysis Do you want consulting provider notified?: Already Contacted 10/30/21 17:04 Consult Physician Urgent Consulting Provider: John Jensen Consult Reason/Comments: lung mass Do you want consulting provider notified?: Yes Primary care physician: Denver Singh Hospital Course: Final Diagnosis Shortness of breath secondary to near complete atelectasis left lung with endobrachial tumor found on bronchoscopy blocking the left distal mainstem bronchus Hemoptysis, improving Leukocytosis secondary to above Elevated d-dimer no evidence for pulmonary embolism Asymptomatic bacteriurea culture negative History of right breast cancer with chemotherapy and mastectomy and breast reconstruction, maintained on femara Hypertension Daily tobacco use, 1/2 pack per day, counseling has been provided THC use Full Code Discharge Disposition Patient is stable for discharge in guarded condition to follow up with pulmonary in the office next week. She is maintaining oxygen saturation 93% on room air. She has been counseled on smoking cessation. Hospital Course This is a 70 year old female patient of Dr Singh, with history of right breast cancer with chemotherapy and mastectomy as well as breast reconstruction, hypertension, daily smoker. She is currently maintained on Femara. Patient presents with concern for shortness of breath has been increasing. She also complains of hemoptysis ongoing for the past week. She admits to smoking half pack per day and also smokes marijuana joint daily. On admission chest x-ray was completed showing a completelocation of the left hemithorax with possible associated left pleural effusion possible complete collapse of the left lung. There is also left lung atelectasis. Follow-up chest CT showing near complete analysis of left lung parenchyma with small left pleural effusion. Patient was evaluated by pulmonary services and underwent bronchoscopy with EBUS. Postoperative findings include endobronchial tumor obstructing the distal left mainstem bronchus with secondary left lung collapse, there is mediastinal lymphadenopathy subcarinal station 7. Biopsies were taken as well as bronchial alveolar lavage of the distal left mainstem bronchus. During bronchoscopy the left upper lobe bronchus and left lower lobe bronchus were unable to be identified as they were unable to pass the mass with bronchoscope. Patient had chest xray completed postoperative without significant change and there is no pneumothorax. Right lung is clear, there is no heart failure. Cultures are currently pending and patient has been cleared to follow up with pulmonary in the office regarding results. She is also referred to oncology. Labs on admission showing white count 13.2 D-Dimer 1.71 Chemistry panel unremarkable Urinalysis showing turbid urine, urine culture negative Blood pressure 136/74. 10/31/2021 Patient is evaluated today sitting up at the bedside. No acute events overnight. No further reports of hemoptysis she still presents with intermittent cough. She is post bronchoscopy and cultures are pending. Pulmonary has cleared patient for discharge. She will resume all home medications. She denies chest pain, shortness of breath at rest. Denies nausea, vomiting, diarrhea. Denies abdominal pain. Right lung is clear, Left lung has decreased lung sounds with some faint rales in the base. S1 S2 auscultated, abdomen is soft and nontender. Focal neurological exam is negative. Labs are stable, Vitals are stable. Please see medication reconciliation for list of current medications. Thank you for allowing us to participate in the care of this patient. The impression and plan of care has been dictated by Vee Elias, Nurse Practitioner as directed. Dr. Mikey MD I have performed a history and physical examination and medical decision making of this patient, discussed the same with the dictator, and agree with the dictators assessment and plan as written, documented as a scribe. Based on total visit time, I have performed more than 50% of this visit. Patient Condition at Discharge: Fair Plan - Discharge Summary New Discharge Prescriptions: New Famotidine [Pepcid] 20 mg PO DAILY #30 tab Continue [place]-3 Fatty Acids/Fish Oil [Fish Oil 1,000 mg Softgel] 2 cap PO DAILY Multivitamins, Thera [Multivitamin (formulary)] 1 tab PO DAILY Letrozole [Femara] 2.5 mg PO DAILY PARoxetine [Paxil] 20 mg PO HS PRN PRN Reason: SLEEP amLODIPine [Norvasc] 10 mg PO DAILY Vitamin B Complex 1 cap PO DAILY Cholecalciferol [Vitamin D3 (25 Mcg = 1000 Iu)] 50 mcg PO DAILY Ascorbic Acid [Vitamin C] 2,000 mg PO DAILY Aspirin EC [Ecotrin Low Dose] 81 mg PO DAILY Discharge Medication List Letrozole [Femara] 2.5 mg PO DAILY 03/31/16 [History] Multivitamins, Thera [Multivitamin (formulary)] 1 tab PO DAILY 03/31/16 [History] [place]-3 Fatty Acids/Fish Oil [Fish Oil 1,000 mg Softgel] 2 cap PO DAILY 03/31/16 [History] Ascorbic Acid [Vitamin C] 2,000 mg PO DAILY 10/29/21 [History] Aspirin EC [Ecotrin Low Dose] 81 mg PO DAILY 10/29/21 [History] Cholecalciferol [Vitamin D3 (25 Mcg = 1000 Iu)] 50 mcg PO DAILY 10/29/21 [History] PARoxetine [Paxil] 20 mg PO HS PRN 10/29/21 [History] Vitamin B Complex 1 cap PO DAILY 10/29/21 [History] amLODIPine [Norvasc] 10 mg PO DAILY 10/29/21 [History] Famotidine [Pepcid] 20 mg PO DAILY #30 tab 10/31/21 [Rx] Follow up Appointment(s)/Referral(s): John Jensen MD [STAFF PHYSICIAN] - 1 Week Denver Singh MD [Primary Care Provider] - 1-2 days Rachel Young MD [STAFF PHYSICIAN] - 1 Week Patient Instructions/Handouts: Coughing Up Blood (Hemoptysis) (GEN) Activity/Diet/Wound Care/Special Instructions: Patient needs to follow up with Dr Young in the office in 1 week to discuss biopsy reports. Also needs to make appointment to see Dr Jensen with oncology in the office. Patient is recommended for total smoking cessation. Education has been provided. Please monitor for shortness of breath, return to ER if difficulty breathing. Discharge Disposition: HOME SELF-CARE
--- NOTE | 2021-11-01 21:39 | P.CONS ---
History of Present Illness - Reason for Consult Consult date: 11/01/21 Lung Mass - History of Present Illness The patient is a 70-year-old white female, known to myself for her previous history of breast cancer, for which she is on letrozole. The patient is being seen for a new issue, however. She states that she had had some subjective shortness of breath for about a year, as well as a mild cough. Intermittently, that had persisted. The symptoms had become progressively worse. Over the past 2 weeks, there was a marked increase in difficulty breathing, as well as cough. The patient therefore came into the emergency room. Chest x-ray and then CT scan of the chest confirmed near complete opacification of the left hemithorax. The patient then underwent a bronchoscopy, which revealed a cauliflower-like endobronchial mass causing obstruction at the distal left main bronchus. Bio psies were performed. The patient is surprisingly well compensated with the right lung, and scanning on a conversation without any shortness of breath, or need for oxygen she has a history of smoking between about 1/2 - 1 pack a day since her teens Her breast cancer history is as follows: H/O early stage breast carcinoma on the left, diagnosed in 1985. She was treated with lumpectomy and radiation [facility]. She was prescribed Tamoxifen, but took it only for a short time. In 07/29, she was found to have an invasive carcinoma again in the right breast ( new primary vs recurrence). She had an excisional biopsy with SN sampling in 07/29. Nodes were negative, but margins were apparently involved. She did not follow up till 10/30 due to insurance issues. She then had a mastectomy by Dr Gadiel Weir, revealing no residual disease. She then had 4 cycles of Taxotere and Cytoxan ( s/p significant delay due to non compliance with f/U), completing those in 03/01. She was then placed on Arimidex. She moved to the [facility] and was seen by Dr Slade in 04/02. She had not had any oncology f/u for several months at that time, and had not been taking her AI. She was placed on Femara. She was referred to Dr Chloé Dougherty for reconstruction, which was done by Dr Lopez. After her initial visit, she did not follow up with Dr Slade. Apparently, she did continue the Femara. She states that there was a problem with the initial reconstruction, and she had repeat surgery in [place] in 2014. She was referred here by her current PCP, Dr Singh to re establish Oncology care in 10/05. She was continued on Femara. BMD was repeated revealing osteopenia. the patient will follow up in the office after her second visit in 11/05. Review of Systems Constitutional: Reports fatigue Eyes: denies blurred vision, denies pain Ears: deny: decreased hearing, ear discharge, earache, tinnitus Ears, nose, mouth and throat: Denies headache, Denies sore throat Cardiovascular: Reports shortness of breath Respiratory: Reports cough, Reports dyspnea Gastrointestinal: Denies abdominal pain, Denies diarrhea, Denies nausea, Denies vomiting Genitourinary: Denies dysuria, Denies hematuria Menstruation: Reports postmenopausal Musculoskeletal: Denies myalgias Integumentary: Denies pruritus, Denies rash Neurological: Reports weakness Psychiatric: Reports as per HPI (non compliance ), Denies anxiety, Denies depression Endocrine: Reports fatigue Hematologic/Lymphatic: Reports as per HPI Past Medical History Past Medical History: Cancer, Hypertension, Osteoarthritis (OA) Additional Past Medical History / Comment(s): HX BREAST CANCER History of Any Multi-Drug Resistant Organisms: None Reported Past Surgical History: Breast Surgery, Joint Replacement Additional Past Surgical History / Comment(s): 04/05/16 total R knee arthroplasty. Other surgical hx: RT BREAST MASTECTOMY/RECONSTRUCTION LT EYE SOCKET AND LT EAR Past Anesthesia/Blood Transfusion Reactions: No Reported Reaction Past Psychological History: No Psychological Hx Reported Smoking Status: Current every day smoker Past Alcohol Use History: Occasional Past Drug Use History: Marijuana - Past Family History Mother Family Medical History: Cancer Additional Family Medical History / Comment(s): Mother of lung cancer at the age of 83 yrs. She was a heavy smoker Father Family Medical History: No Reported History Brother(s) Additional Family Medical History / Comment(s): lung cancer Medications and Allergies Home Medications Medication Instructions Recorded Confirmed Type Letrozole [Femara] 2.5 mg PO DAILY 03/31/16 10/29/21 History Multivitamins, Thera [Multivitamin 1 tab PO DAILY 03/31/16 10/29/21 History (formulary)] [place]-3 Fatty Acids/Fish Oil [Fish 2 cap PO DAILY 03/31/16 10/29/21 History Oil 1,000 mg Softgel] Ascorbic Acid [Vitamin C] 2,000 mg PO DAILY 10/29/21 10/29/21 History Aspirin EC [Ecotrin Low Dose] 81 mg PO DAILY 10/29/21 10/29/21 History Cholecalciferol [Vitamin D3 (25 50 mcg PO DAILY 10/29/21 10/29/21 History Mcg = 1000 Iu)] PARoxetine [Paxil] 20 mg PO HS PRN 10/29/21 10/29/21 History Vitamin B Complex 1 cap PO DAILY 10/29/21 10/29/21 History amLODIPine [Norvasc] 10 mg PO DAILY 10/29/21 10/29/21 History Famotidine [Pepcid] 20 mg PO DAILY #30 tab 10/31/21 Rx Allergies Allergy/AdvReac Type Severity Reaction Status Date / Time methylprednisolone Allergy Anaphylaxis Verified 10/30/21 11:45 [From Solu-Medrol] nicotine [From Nicotrol] Allergy Unknown Verified 10/29/21 17:18 prednisone Allergy Unknown Verified 10/29/21 17:18 Sulfa (Sulfonamide Allergy Rash/Hives Verified 10/29/21 17:18 Antibiotics) meperidine [From Demerol] AdvReac Nausea & Verified 10/29/21 17:18 Vomiting morphine AdvReac Nausea & Verified 10/29/21 17:18 Vomiting Physical Exam - Constitutional General appearance: no acute distress - EENT Eyes: EOMI, PERRLA ENT: hearing grossly normal, normal oropharynx - Neck Neck: no lymphadenopathy Thyroid: bilateral: normal size - Respiratory Respiratory: left: diminished (essentially all of left lung field) - Cardiovascular Rhythm: regular Heart sounds: normal: S1, S2 - Gastrointestinal General gastrointestinal: normal bowel sounds, soft - Integumentary Integumentary: normal - Neurologic Neurologic: CNII-XII intact - Musculoskeletal Musculoskeletal: generalized weakness, strength equal bilaterally - Psychiatric Psychiatric: A&O x's 3, appropriate affect Results CBC & Chem 7: 10/31/21 09:53 10/31/21 09:53 Labs: Microbiology - Last 24 Hours (Table) 10/30/21 16:30 Gram Stain - Final Bronchial Washings - Left Bronchial Washings Culture - Final 10/30/21 16:30 Acid Fast Bacilli Smear - Final Bronchial Washings - Left Acid Fast Bacilli Culture - Preliminary Chest x-ray: report reviewed CT scan - chest: report reviewed Assessment and Plan (1) Mass of left lung Narrative/Plan: the patient's presentation is highly suspicious for primary lung malignancy, causing left main stem bronchus obstruction. Biopsies are pending. Likely diagnosis and implications were discussed in detail with the patient. Assuming that pathology will confirm the above clinical impression, the patient will need additional staging with MRI of the brain, as well as PET scan. - the patient is remarkably well compensated in terms of her breathing. She is felt to be stable for discharge according to pulmonary. - okay to discharge according to oncology also. The patient will have PET scan and MRI scheduled as an outpatient. - Final treatment plan will be based on pathology, as well as staging study results. - The case was discussed in detail with pulmonary medicine Status: Acute Code(s): R91.8 - OTHER NONSPECIFIC ABNORMAL FINDING OF LUNG FIELD SNOMED Code(s): 987162938 (2) Hx of breast cancer Narrative/Plan: history as described in the HPI. her course has been marked by major noncompliance. The patient has continued on letrozole. Her current finding of the lung mass could represent metastatic recurrence of breast cancer, but lung primary is clinically much more likely - await pathology. If breast primary is ruled out, then the patient can actually stop taking her letrozole and she has been on it for more than 10 years. Status: Acute Code(s): Z85.3 - PERSONAL HISTORY OF MALIGNANT NEOPLASM OF BREAST SNOMED Code(s): 664981034
--- NOTE | 2021-11-06 10:44 | CDI ---
Documentation Clarification Form Date: 11/06/21 From: Kasandra Austin Admit Date: 10/29/2021 11:09:00 PM Patient Name: Augustina Hdz Visit Number: [id number] Discharge Date: 10/31/2021 05:12:00 PM ATTENTION: The Clinical Documentation Specialists (CDI) and [facility] Coding Staff appreciate your assistance in clarifying documentation. Please respond to the clarification below the line at the bottom and electronically sign. The CDI & [facility] Coding staff will review the response and follow-up if needed. Please note: Queries are made part of the Legal Health Record. If you have any questions, please contact the author of this message via ITS. Dr. Fatmata Jensen, The final diagnosis of the pathology report states LEFT LUNG MASS, TRANSBRONCHIAL BIOPSY: Invasive poorly differentiated pulmonary adenocarcinoma. NOTE: The immunostaining pattern confirms the diagnosis of primary pulmonary adenocarcinoma. Coding guidelines do not allow coding professionals to code based on pathology results; therefore, clarification is requested. History/risk factors: HX of breast cancer on Femara, HTN, smoker Clinical Indicator: Left lung collapse Treatment: 1) Endobronchial tumor obstructing the distal left mainstem bronchus with secondary left lung collapse 2) Mediastinal lymphadenopathy, subcarinal, station 7 Please clarify if you agree with the pathology report diagnosis of "Invasive poorly differentiated pulmonary adenocarcinoma, primary: [ x] Yes [ ] No [ ] Other (please specify) [ ] Unable to determine MTDD
== END 2021-10-31 17:12 | disposition home or self-care (01) | DRG 181 ==
LOC: EC 14:36 → 5NMEDONC 23:09 → 4SSUR 10-30 14:28
PROVIDERS: ADMIT Internal Medicine; ATTEND Internal Medicine
PROC: 0B978ZX Drainage of Left Main Bronchus, Via Natural or Artificial Opening Endoscopic, Diagnostic (ICD-10-PCS; principal; 2021-10-30 10:40)
PROC: 07D78ZX Extraction of Thorax Lymphatic, Via Natural or Artificial Opening Endoscopic, Diagnostic (ICD-10-PCS; principal; 2021-10-30 10:40)
PROC: 0BB78ZX Excision of Left Main Bronchus, Via Natural or Artificial Opening Endoscopic, Diagnostic (ICD-10-PCS; principal; 2021-10-30 10:40)
DX: C34.02 Malignant neoplasm of left main bronchus (principal); J98.11 Atelectasis; R04.2 Hemoptysis; C50.911 Malignant neoplasm of unspecified site of right female breast; D72.829 Elevated white blood cell count, unspecified; F17.210 Nicotine dependence, cigarettes, uncomplicated; F32.A Depression, unspecified; Z20.822 Contact with and (suspected) exposure to COVID-19; I10 Essential (primary) hypertension; F41.9 Anxiety disorder, unspecified; M85.80 Other specified disorders of bone density and structure, unspecified site; M19.90 Unspecified osteoarthritis, unspecified site; Z71.6 Tobacco abuse counseling; Z79.811 Long term (current) use of aromatase inhibitors; Z79.82 Long term (current) use of aspirin; Z79.899 Other long term (current) drug therapy; Z85.3 Personal history of malignant neoplasm of breast; Z96.651 Presence of right artificial knee joint; Z92.21 Personal history of antineoplastic chemotherapy; Z92.3 Personal history of irradiation; Z90.11 Acquired absence of right breast and nipple; Z98.82 Breast implant status; Z88.5 Allergy status to narcotic agent; Z88.2 Allergy status to sulfonamides; Z88.8 Allergy status to other drugs, medicaments and biological substances; Z98.890 Other specified postprocedural states; Z80.1 Family history of malignant neoplasm of trachea, bronchus and lung; Z81.2 Family history of tobacco abuse and dependence
CPT/HCPCS: 31623; 31624; 31625; 31629; 31652; 36415; 71045; 71046; 71260; 80048; 80053; 81001; 85025; 85379; 85610; 86850; 86900; 86901; 87070; 87086; 87102; 87116; 87205; 87206; 87252; 87496; 87498; 87502; 87529; 87634; 87635; 87798; 88104; 88108; 88305; 88341; 88342; 93005; 99285

== ENCOUNTER → 2021-11-09 | Outpatient (CLI) | payer MEDICARE, OTHER ==
--- NOTE | 2021-11-10 03:15 | MR ---
EXAMINATION TYPE: MR brain wo/w con DATE OF EXAM: 11/09/2021 COMPARISON: None HISTORY: Breast cancer CONTRAST: Multiplanar multiecho imaging of the brain without and with IV contrast gadolinium. There is mild cerebral atrophy appropriate for age. There is no mass effect or midline shift. No sign of intracranial hemorrhage. Diffusion images show no sign of an acute infarct. On the T2 and FLAIR images there are multiple variable sized white matter high signal foci in both ce rebral hemispheres. Largest measures 1 cm in the left posterior temporal lobe. Total number of lesion s is approximately 30. The brainstem is intact. Cerebellum is intact. Contrast images show no pathologic enhancement. There is normal enhancement of the venous sinuses. Se lla turcica is normal. No evidence of orbital mass. IMPRESSION: Numerous nonenhancing white matter high signal foci that could relate to microvascular ischemia or de myelinating disease. No evidence of metastatic disease. Mild atrophy.
== END | disposition home or self-care (01) ==
LOC: RADMRIMAIN 12:09
PROVIDERS: ATTEND Internal Medicine Hematology & Oncology
DX: G31.9 Degenerative disease of nervous system, unspecified (principal)
CPT/HCPCS: 70553; A9585

== ENCOUNTER → 2021-11-13 | Outpatient (CLI) | payer MEDICARE, OTHER ==
--- NOTE | 2021-11-24 14:55 | PE ---
EXAMINATION TYPE: PET CT fusion skull to thigh DATE OF EXAM: 11/13/2021 COMPARISON: NONE HISTORY: History of right-sided breast cancer 2009 with left lung nodule having recent bronchoscopy November 09. TECHNIQUE: Following the intravenous administration of 11.05 mCi of F-18 FDG, whole body images are performed from the skull base to the midthigh. Images are reviewed on the computer in the coronal, a xial, and sagittal planes. Reconstructed rotating images are created on independent workstation and reviewed on the computer. A localization and attenuation correction CT is performed in conjunction with the PET scan. Blood glucose level equals 101. SCAN: Initial Scan FINDINGS: SKULL BASE AND NECK: No areas of abnormal hypermetabolic uptake. CHEST, MEDIASTINUM, AND HILAR REGION: Right breast implant is identified. There are few prominent but ametabolic lymph nodes in the right axilla anterior to the pectoralis minor muscle axial image 56 fo r reference. No abnormal hypermetabolic uptake in the left breast or axilla. There is hypermetabolic left hilar mass or neoplasm measuring 4.6 x 3.7 cm axial image 76, max SUV is 15.4. There is hypermetabolic 2.5 x 1.9 cm subcarinal lymph node axial image 77, Max SUV is 5.7. The re is small nonsimple left pleural fluid collection which is ametabolic. No additional areas of abnor mal hypermetabolic uptake in the thorax. ABDOMEN AND PELVIS: No adrenal masses. Normal excretion. Mild nonspecific bowel uptake greatest right colon. No areas of abnormal hypermetabolic uptake. OSSEOUS STRUCTURES: No areas of abnormal hypermetabolic uptake. OTHER CT: Gtow-bo-tvnbrjhh calcified plaque bilateral carotid bulbs. Left-sided volume loss with medi astinal shift. Prominent pulmonary arteries suggests underlying pulmonary artery hypertension. IMPRESSION: Abnormal hypermetabolic uptake in the left hilar mass consistent with neoplasm with assoc iated subcarinal adenopathy. No distal metastatic disease.
== END | disposition home or self-care (01) ==
LOC: RADPETMAIN 15:23
PROVIDERS: ATTEND Internal Medicine Hematology & Oncology
DX: C50.911 Malignant neoplasm of unspecified site of right female breast (principal)
CPT/HCPCS: 78815; A9552

== ENCOUNTER → 2022-03-15 | Outpatient (CLI) | payer MEDICARE, OTHER ==
[2022-03-15 16:25] LABS: African American GFR (CKD) >90 (>60 ml/min/1.73 sqM); Blood Urea Nitrogen 9 mg/dL (7-17); Non-African American GFR(CKD) >90 (>60 ml/min/1.73 sqM)
--- NOTE | 2022-03-16 07:46 | CT ---
EXAMINATION TYPE: CT chest w con CT DLP: 273.70 mGycm, Automated exposure control for dose reduction was used. DATE OF EXAM: 03/15/2022 4:50 PM COMPARISON: PET/CTs 11/13/2021. CLINICAL INDICATION:Female, 71 years old with history of C50.911 C30.32, obs for mets. hx of lung and R breast ca. TECHNIQUE: Multiple axial images were obtained through the chest. Sagittal and coronal reformats were created for review. Contrast used:70 mL of Isovue 300 with IV Contrast. Oral contrast used: none. FINDINGS: LUNGS/ PLEURA: Postsurgical changes to the lung. Right upper lobe 4 mm nodule image 19, and 10 mm rig ht upper lobe groundglass subtle pulmonary nodule image 13. No evidence of focal consolidation, pneum othorax or pleural effusion. AIRWAY: Left-sided lobar bronchi are somewhat narrowed is a transverse left pulmonary hilum fullness. This is in the area of prior FDG avid tumor. Example includes image 29 and image 28 HEART: Size within normal limits. MEDIASTINUM: There is soft tissue fullness around the left pulmonary hilum with some narrowing of the segmental bronchi. There is prominent nonenlarged lymph node similar prior FDG in the precarinal reg ion measuring up to 9 mm in short axis. Subcarinal lymph node measuring 7 mm in short axis. VASCULATURE: No aortic aneurysm. MUSCULOSKELETAL: No acute osseous abnormalities, multilevel disc degeneration changes throughout the spine with osteophyte formation. SOFT TISSUES/LYMPH NODES: The right breast is surgically absent there is breast implant in place that appears intact. Stable appearing axillary lymph nodes bilaterally. LOWER NECK: No significant findings. UPPER ABDOMEN: Hypodensity within the left hepatic lobe which was not FDG avid on prior and likely re presents a cyst. Small splenule is present. IMPRESSION: 1. Soft tissue fullness within the left pulmonary hilum which does narrow the left lobar bronchi. Ad ditionally, a prominent subcarinal lymph node remains present which was larger and FDG avid on prior. No new lymphadenopathy identified. Attention on follow-up PET/CT. 2. Stable right upper lobe 4 mm solid pulmonary nodule and 10 mm groundglass nodule.
== END | disposition home or self-care (01) ==
LOC: RADCTMAIN 15:43
PROVIDERS: ATTEND Internal Medicine Hematology & Oncology
DX: C50.911 Malignant neoplasm of unspecified site of right female breast (principal); R91.8 Other nonspecific abnormal finding of lung field
CPT/HCPCS: 82565; 84520; 71260; 36415; Q9967

== ENCOUNTER → 2022-10-29 | Outpatient (CLI) | payer MEDICARE, OTHER ==
--- NOTE | 2022-10-29 23:59 | PE ---
EXAMINATION TYPE: PET CT fusion skull to thigh DATE OF EXAM: 10/29/2022 CLINICAL INDICATION:Female, 71 years old with history of R59.0; TECHNIQUE: Following the intravenous administration of 11.19 mCi of F-18 FDG, whole body images are performed from the skull base to the midthigh. Images are reviewed on the computer in the coronal, axial, and sagittal planes. Reconstructed rotating images are created on independent workstation and reviewed on the computer. A non-contrast CT is performed in conjunction with the PET scan. Glucose level 119 mg/dL COMPARISON: CT 03/15/2022, PET/CT 11/13/2021, FINDINGS: Mediastinal SUV mean is 1.6. Hepatic parenchyma SUV mean is 2.6. SKULL BASE AND NECK: No suspicious radiotracer activity. CHEST, MEDIASTINUM, AND HILAR REGION: Interval decrease in size and FDG activity of the left hilar mass max SUV 2.1. The mass seen on prior s more ill-defined on today's exam and blends in with atelectasis changes. Prior subcarinal lymph node is no longer visualized. No abnormal FDG activity within the lymph nodes of the mediastinum. ABDOMEN AND PELVIS: No suspicious radiotracer activity. OSSEOUS STRUCTURES: No suspicious radiotracer activity. OTHER CT: Ssmd-im-ezaryftx calcified plaque bilateral carotid bulbs. Left-sided volume loss with medi astinal shift. Prominent pulmonary arteries suggests underlying pulmonary artery hypertension. Right breast implant. IMPRESSION: Decrease in size and FDG activity of the left perihilar mass and resolution of subcarinal lymph node. No suspicious FDG activity on today's exam consistent with positive response to therapy.
== END | disposition home or self-care (01) ==
LOC: RADPETMAIN 15:01
PROVIDERS: ATTEND Internal Medicine Hematology & Oncology
DX: R91.1 Solitary pulmonary nodule (principal)
CPT/HCPCS: 78815; A9552

== ENCOUNTER → 2024-03-20 | Outpatient (CLI) | payer MEDICARE, OTHER ==
[2024-03-20 16:28] LABS: African American GFR (CKD) >90 (>60 ml/min/1.73 sqM); Blood Urea Nitrogen 13 mg/dL (7-17); Non-African American GFR(CKD) >90 (>60 ml/min/1.73 sqM)
--- NOTE | 2024-03-22 16:01 | CT ---
EXAMINATION TYPE: CT chest w con DATE OF EXAM: 03/20/2024 COMPARISON: 10/11/2023 HISTORY: Left lung cancer x3 years. Priors in pacs. CT DLP: 367.10 mGycm, Automated exposure control for dose reduction was used. CONTRAST: Performed injected with 100ml mL of Isovue 300. TECHNIQUE: Axial images were obtained at 5 mm thick sections. Reconstructed images are reviewed on [employer] computer in the coronal plane. FINDINGS: Portion of the thyroid visualized is normal. There is soft tissue thickening along the major fissure and in the left infrahilar region. Findings a re similar to comparison. No enlarged mediastinal or hilar adenopathy is evident. Largest lymph node in the pretracheal space measures 0.8 cm. The ascending aorta diameter at the level of the main pulmonary artery is 3.1 cm. The main pulmonary artery diameter at the bifurcation is 2.[address] sections are obtained through the upper abdomen. There is mild diffuse fatty infiltration liver. No discrete masses. No discrete osseous abnormality. There is a right breast prosthesis. IMPRESSION: 1. Stable appearance of left infrahilar soft tissue can be related to patient's reported left lung ca ncer findings appear stable from comparison [facility], Workstation: [facility], 03/22/2024 3:59 PM
== END | disposition home or self-care (01) ==
LOC: RADCTMAIN 15:44
PROVIDERS: ATTEND Internal Medicine Hematology & Oncology
DX: C34.32 Malignant neoplasm of lower lobe, left bronchus or lung (principal); C50.911 Malignant neoplasm of unspecified site of right female breast; F41.9 Anxiety disorder, unspecified; Z90.10 Acquired absence of unspecified breast and nipple
CPT/HCPCS: 82565; 84520; 71260; 36415; Q9967

== ENCOUNTER → 2024-12-07 | Outpatient (CLI) | payer MEDICARE, OTHER ==
--- NOTE | 2024-12-07 12:32 | MM ---
Reason for Exam: Hx of breast cancer, mastectomy. Last mammogram was performed 6 year(s) and 2 month(s) ago. Patient History: Menarche at age 15. First Full-Term at age 19. Postmenopausal. Breast cancer, right, age 58. 2009, Mastectomy on the Right side. 09/2013, Reduction on the Left side. 2009, Chemotherapy. 09/2013, Implant on the right side. Maternal aunt had breast cancer. Prior Study Comparison: 04/05/2012 Left Diagnostic Mammogram, [facility]. 12/19/2014 Left Diagnostic Mammogram, [facility]. 09/27/2018 Left Diagnostic Mammogram, [facility]. Tissue Density: Left: The breasts are heterogeneously dense, which may obscure small masses. Findings: Analyzed By CAD. No dominant mass or architectural distortion. No suspicious calcifications. Overall Assessment: Benign, BI-RAD 2 Management: Diagnostic Mammogram of the left breast in 1 year. . Results were given to the patient verbally at the time of exam. Patient should continue monthly self-breast exams. A clinical breast exam by your physician is recommended on an annual basis. This exam should not preclude additional follow-up of suspicious palpable abnormalities. Note on Ana Laura scores and lifetime risk: 1. A Ana Laura score greater than 3% is considered moderate risk. If this is the case, consider specialist referral to assess eligibility for a risk reducing agent. 2. If overall lifetime risk for the development of breast cancer is 20% or higher, the patient may qualify for future screening with alternating mammogram and breast MRI. [facility], , 12/07/2024 12:29 PM. Electronically signed and approved by: Dustin Coello M.D. Radiologis
--- NOTE | 2024-12-07 12:54 | USB ---
Reason for Exam: Clinical finding. Patient History: Menarche at age 15. First Full-Term at age 19. Postmenopausal. Breast cancer, right, age 58. 2009, Mastectomy on the Right side. 09/2013, Reduction on the Left side. 2009, Chemotherapy. 09/2013, Implant on the right side. Maternal aunt had breast cancer. Technique: Method: Whole Breast Handheld. Prior Study Comparison: 04/05/2012 Left Diagnostic Mammogram, [facility]. 12/19/2014 Left Diagnostic Mammogram, [facility]. 09/27/2018 Left Diagnostic Mammogram, [facility]. Findings: The whole breast of the right breast and the axilla of the right breast were scanned. A complete US of the right breast and retro-areolar region were reviewed. No solid or cystic masses are identified.. Slight irregularity of the implant at 4:00 implant injury. Overall Assessment: Benign, BI-RAD 2 Management: Diagnostic Breast MRI of the right breast. A clinical breast exam by your physician is recommended on an annual basis and results should be correlated with mammographic findings. This exam should not preclude additional follow-up of suspicious palpable abnormalities. Results were given to the patient verbally at the time of exam. [facility], , 12/07/2024 12:51 PM. Electronically signed and approved by: Dustin Coello M.D. Radiologis
== END | disposition home or self-care (01) ==
LOC: RADMAMWWP 11:42
PROVIDERS: ATTEND Internal Medicine Hematology & Oncology
DX: C50.911 Malignant neoplasm of unspecified site of right female breast (principal); R92.332 Mammographic heterogeneous density, left breast; Z78.0 Asymptomatic menopausal state; Z80.3 Family history of malignant neoplasm of breast; Z90.11 Acquired absence of right breast and nipple; Z85.3 Personal history of malignant neoplasm of breast; Z98.82 Breast implant status
CPT/HCPCS: 77065; 76641; G0279; 77061